=== PATIENT | male | born 1985 | race Caucasian/White ===

== ENCOUNTER 2023-02-01 01:06 | Inpatient (IN) | payer OTHER ==
[~2023-02-01] VITALS: Ht 185.4 cm; Wt 115.7 kg
[2023-02-01 01:26] VITALS: BP_SYST 147; PULSE 60; RESP 20; TEMP 97.7; O2SAT 100
[2023-02-01] MEDS ORDERED: MORPHINE 4 MG INJ. 4 MG/ML VIAL IVP ONE ×2 (01:35→04:45)
[2023-02-01] MEDS ORDERED: NITROGLYCERIN 1 INCH (GM) OINT. TP ONE (01:35)
[2023-02-01 02:16] LABS: BASOPHILS % (AUTO) 0.2 % (0.0-2.0); EOSINOPHILS # (AUTO) 0.1 K/uL (0.0-0.4); EOSINOPHILS % (AUTO) 0.6 % (0.0-4.0)
[2023-02-01 02:46] LABS: HEMATOCRIT 49.2 % (36-54); LYMPHOCYTES # (AUTO) 1.7 K/uL (1.0-5.5); LYMPHOCYTES % (AUTO) 11.1 % (20.5-51.5); MEAN CORPUSCULAR HEMOGLOBIN 29 pg (27-31); MEAN CORPUSCULAR HGB CONC 33 % (32-36); MEAN CORPUSCULAR VOLUME 88 fL (79.0-98.0); MONOCYTES # (AUTO) 1.1 K/uL (0.0-1.0); MONOCYTES % (AUTO) 7.6 % (1.7-9.3); NEUTROPHILS % (AUTO) 80.5 % (40.0-70.0); PLATELET COUNT (AUTO) 198 K/uL (130-430); RED BLOOD CELL COUNT(AUTO) 5.58 MIL/uL (4.2-6.2); RED CELL DISTRIBUTION WIDTH 13.5 % (9.0-15.0); WHITE BLOOD COUNT (AUTO) 14.9 K/uL (4.8-10.8)
[2023-02-01 02:50] LABS: ANION GAP 12 (5-15); CALCIUM 9.8 mg/dL (8.4-11.0); CARBON DIOXIDE 28 mmol/L (23-29); CHLORIDE 98 mmol/L (98-107); CREATININE 0.97 mg/dL (0.55-1.30); GFR AFRICAN AMERICAN 111 mL/min (>90); GLUCOSE 122 mg/dL (74-106); POTASSIUM 3.7 mmol/L (3.5-5.1); SODIUM SERUM 138 mmol/L (136-145); UREA NITROGEN, BLOOD 11 mg/dL (8-21)
[2023-02-01 03:04] LABS: GFR NON AFRICAN-AMERICAN 92 mL/min (>90)
[2023-02-01 03:50] LABS: ALBUMIN 4.4 g/dL (3.4-4.8); BILIRUBIN,DIRECT 0.2 mg/dL (0.0-0.3); TOTAL BILIRUBIN 1.1 mg/dL (0.0-1.0); TOTAL PROTEIN, SERUM 8.4 g/dL (6.4-8.3)
[2023-02-01] MEDS ORDERED: ONDANSETRON HCL 4 MG/2 ML VIAL IVP ONE (04:45)
[2023-02-01] MEDS ORDERED: HYDROmorphone 1 MG/ML INJ. CARTRIDGE IVP ONE (06:15)
[2023-02-01] MEDS ORDERED: PIPERACILLIN/TAZO 3.375 GM in NS 50 ML IV ONE (06:30)
[2023-02-01] MEDS ORDERED: PIPERACILLIN/TAZOBACTAM 3.375 GM/VIAL (ZOSYN) IV ONE (06:30)
[2023-02-01] MEDS: D5/0.45 NS 1,000 ML IV SCH (07:27)
[2023-02-01] MEDS ORDERED: MORPHINE 2 MG/ML INJ. SYRINGE IVP PRN (09:30)
[2023-02-01] MEDS: MORPHINE 4 MG INJ. 4 MG/ML VIAL IVP PRN ×2 (10:17→22:36)
[2023-02-01] MEDS ORDERED: ONDANSETRON HCL 4 MG/2 ML VIAL IVP PRN (14:45)
[2023-02-01] MEDS ORDERED: LORazepam 2 MG/ML VIAL IVP PRN (14:45)
[2023-02-01 14:54] VITALS: BP_SYST 118; PULSE 63; RESP 17; TEMP 98.3; O2SAT 98
[2023-02-01 19:00] VITALS: BP_SYST 133; PULSE 58; RESP 16; TEMP 98.9; O2SAT 98
[2023-02-01 20:00] VITALS: BP_SYST 133; PULSE 58; RESP 16; TEMP 98.9; O2SAT 98
[2023-02-02] VITALS: BP_SYST 128; PULSE 62; RESP 16; TEMP 98.4; O2SAT 98
[2023-02-02] MEDS: D5/0.45 NS 1,000 ML IV SCH ×4 (02:45→22:45)
[2023-02-02] MEDS: MORPHINE 4 MG INJ. 4 MG/ML VIAL IVP PRN ×4 (02:49→22:35)
[2023-02-02 05:31] LABS: BASOPHILS % (AUTO) 0.3 % (0.0-2.0); EOSINOPHILS # (AUTO) 0.1 K/uL (0.0-0.4); EOSINOPHILS % (AUTO) 0.5 % (0.0-4.0); HEMATOCRIT 46.6 % (36-54); HEMOGLOBIN 15.2 g/dL (14.0-18.0); LYMPHOCYTES # (AUTO) 1.4 K/uL (1.0-5.5); LYMPHOCYTES % (AUTO) 9.4 % (20.5-51.5); MEAN CORPUSCULAR HEMOGLOBIN 29 pg (27-31); MEAN CORPUSCULAR HGB CONC 33 % (32-36); MEAN CORPUSCULAR VOLUME 88 fL (79.0-98.0); MONOCYTES # (AUTO) 1.7 K/uL (0.0-1.0); MONOCYTES % (AUTO) 11.1 % (1.7-9.3); NEUTROPHILS # (AUTO) 11.8 K/uL (1.8-7.7); NEUTROPHILS % (AUTO) 78.7 % (40.0-70.0); PLATELET COUNT (AUTO) 176 K/uL (130-430); RED BLOOD CELL COUNT(AUTO) 5.28 MIL/uL (4.2-6.2); RED CELL DISTRIBUTION WIDTH 13.4 % (9.0-15.0)
[2023-02-02 06:35] LABS: ALBUMIN 3.6 g/dL (3.4-4.8); CALCIUM 8.8 mg/dL (8.4-11.0); CREATININE 0.86 mg/dL (0.55-1.30); POTASSIUM 3.7 mmol/L (3.5-5.1); TOTAL BILIRUBIN 1.3 mg/dL (0.0-1.0); TOTAL PROTEIN, SERUM 7.2 g/dL (6.4-8.3)
[2023-02-02 08:00] VITALS: BP_SYST 142; PULSE 67; RESP 18; TEMP 99.1; O2SAT 100
[2023-02-02] MEDS: PIPERACILLIN/TAZO 3.375/DEX-IS 50 ML IV SCH ×3 (12:00→23:56)
[2023-02-02] MEDS ORDERED: DESFLURANE 15 MIN GAS INH ONE (12:15)
[2023-02-02] MEDS ORDERED: WATER FOR INJECTION,STERILE 20 ML VIAL IV ONE (12:15)
[2023-02-02] MEDS ORDERED: NS 1000 ML IV.SOLN IV ONE (12:15)
[2023-02-02] MEDS ORDERED: DEXAMETHASONE SOD PHOSPHATE 4 MG/ML VIAL ONE (12:15)
[2023-02-02] MEDS ORDERED: NS 500 ML IV.SOLN IV ONE (12:15)
[2023-02-02] MEDS ORDERED: PROPOFOL 200MG/ 20ML VIAL (DIPRIVAN) IV ONE (12:15)
[2023-02-02] MEDS ORDERED: ROCURONIUM BROMIDE 10 MG/ML (ZEMURON) ONE ×2 (12:15)
[2023-02-02] MEDS ORDERED: ONDANSETRON HCL 4 MG/2 ML VIAL ONE (12:15)
[2023-02-02] MEDS ORDERED: LIDOCAINE 2%, 20 ML MDV ONE (12:15)
[2023-02-02] MEDS ORDERED: SUGAMMADEX SODIUM 200 MG/2 ML VIAL IV ONE (12:15)
[2023-02-02] MEDS ORDERED: LR 1,000 ML IV.SOLN IV ONE (12:15)
[2023-02-02] MEDS ORDERED: fentaNYL CITRATE/PF 100 MCG/2 ML AMP ONE (12:15)
[2023-02-02] MEDS ORDERED: BUPIVACAINE /PF 0.25% 30 ML VIAL INJ ONE (12:15)
[2023-02-02] MEDS ORDERED: MEPERIDINE HCL/PF 25 MG/ML DISP.SYRIN IVP PRN (13:00)
[2023-02-02] MEDS ORDERED: MIDAZOLAM HCL 2 MG/2 ML VIAL (VERSED) IVP PRN (13:00)
[2023-02-02] MEDS ORDERED: METOCLOPRAMIDE HCL 10 MG/2 ML VIAL IVP PRN (13:00)
[2023-02-02] MEDS ORDERED: LABETALOL 100 MG/ 20ML VIAL IVP PRN (13:00)
[2023-02-02] MEDS: LR 1,000 ML IV SCH ×2 (13:00→21:20)
[2023-02-02] MEDS ORDERED: hydrALAZINE HCL 20 MG/ML VIAL IVP PRN (13:00)
[2023-02-02] MEDS ORDERED: HYDROmorphone 1 MG/ML INJ. CARTRIDGE IVP PRN ×2 (13:00)
[2023-02-02] MEDS ORDERED: ACETAMINOPHEN I.V. 1000 MG 100 ML IV ONE (13:35)
[2023-02-02] MEDS ORDERED: ACETAMINOPHEN/CODEINE 300 MG-30 MG TABLET PO PRN (14:30)
[2023-02-02] MEDS ORDERED: NALOXONE HCL 0.4 MG/ML AMP (NARCAN) IVP PRN (14:30)
[2023-02-02] MEDS ORDERED: traMADol HCL HCL 50 MG TABLET (ULTRAM) PO PRN (14:30)
[2023-02-02] MEDS ORDERED: ONDANSETRON HCL 4 MG/2 ML VIAL IM PRN (14:30)
[2023-02-02 16:00] VITALS: BP_SYST 132; PULSE 75; RESP 18; TEMP 98.1; O2SAT 100
[2023-02-02 16:23] VITALS: BP_SYST 128; PULSE 62; O2SAT 98
[2023-02-02 20:00] VITALS: BP_SYST 138; PULSE 83; RESP 20; TEMP 97.5; O2SAT 95; O2SAT 96
[2023-02-02 20:20] VITALS: O2SAT 97
[2023-02-02] MEDS: LINEZOLID 300 ML IV SCH (21:20)
[2023-02-03] VITALS: BP_SYST 130; PULSE 56; RESP 20; TEMP 98.6; O2SAT 96
[2023-02-03] MEDS: MORPHINE 4 MG INJ. 4 MG/ML VIAL IVP PRN (03:32)
[2023-02-03 05:39] LABS: BASOPHILS % (AUTO) 0.2 % (0.0-2.0); EOSINOPHILS # (AUTO) 0.1 K/uL (0.0-0.4); EOSINOPHILS % (AUTO) 0.6 % (0.0-4.0); HEMATOCRIT 43.4 % (36-54); HEMOGLOBIN 14.3 g/dL (14.0-18.0); LYMPHOCYTES # (AUTO) 1.8 K/uL (1.0-5.5); LYMPHOCYTES % (AUTO) 13.8 % (20.5-51.5); MEAN CORPUSCULAR HEMOGLOBIN 29 pg (27-31); MEAN CORPUSCULAR HGB CONC 33 % (32-36); MEAN CORPUSCULAR VOLUME 88 fL (79.0-98.0); MONOCYTES # (AUTO) 1.5 K/uL (0.0-1.0); MONOCYTES % (AUTO) 11.1 % (1.7-9.3); NEUTROPHILS # (AUTO) 9.8 K/uL (1.8-7.7); NEUTROPHILS % (AUTO) 74.3 % (40.0-70.0); PLATELET COUNT (AUTO) 179 K/uL (130-430); RED BLOOD CELL COUNT(AUTO) 4.92 MIL/uL (4.2-6.2); RED CELL DISTRIBUTION WIDTH 13.5 % (9.0-15.0); WHITE BLOOD COUNT (AUTO) 13.1 K/uL (4.8-10.8)
[2023-02-03] MEDS: LR 1,000 ML IV SCH ×2 (05:40→14:00)
[2023-02-03 06:05] LABS: CALCIUM 8.8 mg/dL (8.4-11.0); CREATININE 0.83 mg/dL (0.55-1.30); POTASSIUM 3.8 mmol/L (3.5-5.1); TOTAL BILIRUBIN 0.9 mg/dL (0.0-1.0); TOTAL PROTEIN, SERUM 6.8 g/dL (6.4-8.3)
[2023-02-03] MEDS: PIPERACILLIN/TAZO 3.375/DEX-IS 50 ML IV SCH ×2 (07:10→12:59)
[2023-02-03] MEDS: D5/0.45 NS 1,000 ML IV SCH (07:11)
[2023-02-03 08:00] VITALS: BP_SYST 138; PULSE 73; RESP 16; TEMP 98.8; O2SAT 98
[2023-02-03] MEDS: LINEZOLID 300 ML IV SCH (10:44)
[2023-02-03 12:00] VITALS: BP_SYST 131; PULSE 68; RESP 17; TEMP 98.5; O2SAT 98
[2023-02-03] MEDS ORDERED: AMOX-423 PO (15:09)
[2023-02-03] MEDS ORDERED: SIME125C81 PO (15:09)
[2023-02-03] MEDS ORDERED: TRAM50TA2 PO (15:09)
[2023-02-03 15:20] VITALS: BP_SYST 131; PULSE 68; RESP 17; TEMP 98.5; O2SAT 98
== END 2023-02-03 16:57 | disposition home or self-care (01) | DRG 854 ==
LOC: SED 01:06 → SMU 06:37
PROVIDERS: ADMIT Preventive Medicine Preventive Medicine/Occupational Environmental Medicine; ATTEND Specialist
PROC: 0FN44ZZ Release Gallbladder, Percutaneous Endoscopic Approach (ICD-10-PCS; 2023-02-02)
PROC: BF131ZZ Fluoroscopy of Gallbladder and Bile Ducts using Low Osmolar Contrast (ICD-10-PCS; 2023-02-02)
PROC: 0FT44ZZ Resection of Gallbladder, Percutaneous Endoscopic Approach (ICD-10-PCS; principal; 2023-02-02 12:25)
DX: A41.9 Sepsis, unspecified organism (principal); K80.66 Calculus of gallbladder and bile duct with acute and chronic cholecystitis without obstruction; K82.1 Hydrops of gallbladder; R73.9 Hyperglycemia, unspecified; D72.829 Elevated white blood cell count, unspecified; E66.9 Obesity, unspecified; Z68.33 Body mass index [BMI] 33.0-33.9, adult
CPT/HCPCS: 36415; 71045; 74300; 76376; 76700-TC; 78226; 80048; 80053; 80076; 83605; 83880; 84484; 85025; 85379; 87040; 88304; 94010; 94760; 96374; 96375; 99285; A9537; C1727; J0131; J1100; J1170; J2001; J2020; J2270; J2405; J2543; J2704; J3010; J3490; J7030; J7040; J7120; Q9967